=== PATIENT | male | born 2000 | race Caucasian/White ===

== ENCOUNTER 2021-01-28 04:41 | Emergency (ER) | payer BC ==
--- NOTE | 2021-01-28 05:07 | EDM.PDOC ---
ED HPI GENERAL MEDICAL PROBLEM - General Stated Complaint: wrist pain/injury-both Time Seen by Provider: 01/28/21 04:55 Source of Information: Reports: Patient, Family History Limitations: Reports: No Limitations - History of Present Illness INITIAL COMMENTS - FREE TEXT/NARRATIVE: Patient presented to the ED because of bilateral wrist pain. He said he has been punching a bag at the gym and since then he has been hurting on both wrist. He also c/o epigastric pain that is sharp and burning. He said he doesn't want to take any medication. His mom also mentioned that he might be into drugs and might have anxiety or depression that is undiagnosed. When asked if he is suicidal,homicidal he answered no. He doesn't think he has anxiety or depression either. Bilateral Wrist Pain Score (Numeric/FACES): 10 - Related Data Allergies Allergy/AdvReac Type Severity Reaction Status Date / Time No Known Allergies Allergy Verified 01/28/21 04:54 Home Meds: Home Meds NK [No Known Home Meds] 01/28/21 [History] Review of Systems - Review of Systems Review Of Systems: See Below Constitutional: Reports: No Symptoms Eyes: Reports: No Symptoms Ears: Reports: No Symptoms Nose: Reports: No Symptoms Mouth/Throat: Reports: No Symptoms Respiratory: Reports: No Symptoms Cardiovascular: Reports: No Symptoms GI/Abdominal: Reports: No Symptoms Genitourinary: Reports: No Symptoms Musculoskeletal: Reports: No Symptoms Skin: Reports: No Symptoms Neurological: Reports: No Symptoms Psychiatric: Reports: No Symptoms ED EXAM, GENERAL - Physical Exam Exam: See Below Exam Limited By: No Limitations General Appearance: Alert, No Apparent Distress Eye Exam: Bilateral Eye: PERRL Ears: Normal External Exam, Normal Canal Nose: Normal Inspection, Normal Mucosa, No Blood Throat/Mouth: Normal Inspection, Normal Lips, Normal Teeth, Normal Gums Head: Atraumatic, Normocephalic Neck: Normal Inspection, Supple, Non-Tender, Full Range of Motion Respiratory/Chest: No Respiratory Distress, Lungs Clear, Normal Breath Sounds, No Accessory Muscle Use, Chest Non-Tender Cardiovascular: Normal Peripheral Pulses, Regular Rate, Rhythm, No Edema, No Gallop, No JVD, No Murmur, No Rub GI/Abdominal: Normal Bowel Sounds, Soft, Non-Tender, No Organomegaly, No Distention, No Abnormal Bruit, No Mass Back Exam: Normal Inspection, Full Range of Motion Extremities: Normal Inspection, Normal Range of Motion, Non-Tender, No Pedal Edema, Normal Capillary Refill Neurological: Alert, Oriented, CN II-XII Intact Psychiatric: Other (irritable) Skin Exam: Warm, Intact Course - Vital Signs Text/Narrative:: Xray [id number] Doesn't want a GI cocktail for his epigastric pain Last Recorded V/S: Last Vital Signs Temp 36.4 C 01/28/21 04:50 Pulse 83 01/28/21 04:50 Resp 18 01/28/21 04:50 BP 142/75 H 01/28/21 04:50 Pulse Ox 98 01/28/21 04:50 Departure - Departure Time of Disposition: 05:10 Disposition: Home, Self-Care 01 Condition: Good Clinical Impression: Wrist sprain - Discharge Information Instructions: Food Choices for Gastroesophageal Reflux Disease, Child, [id number], Wrist Sprain, Adult Referrals: PCP,None [Primary Care Provider] - Forms: ED Department Discharge Additional Instructions: Please read discharge instructions on wrist sprain Apply ice Take ibuprofen 800 mg with tylenol 1000 mg every 8 hours as needed for pain TUMS extra strength, ches 2-3 tablets and swallow with lukewarm water as needed whenever you have that epigastric pain Follow up with your doctor so you can be referred to see a psychiatrist if you have an ongoing behavioral issues like anxiety, depression or both Sepsis Event Note (ED) - Evaluation Sepsis Screening Result: No Definite Risk
--- NOTE | 2021-01-28 12:53 | CR ---
INDICATION: Bilateral wrist pain - punching injuries one week ago. BILATERAL WRIST 16821: Three views of the right and left wrists were obtained 01/28/21. No comparisons were available. An acute fracture, dislocation, or other significant bone or joint abnormality was not identified. If symptoms persist - if occult fracture site is suspected clinically - re- examination in 10-14 days may be helpful . [facility]
== END 2021-01-28 05:57 | disposition home or self-care (01) ==
LOC: FB.ED 04:41
DX: S63.501A Unspecified sprain of right wrist, initial encounter (principal); S63.502A Unspecified sprain of left wrist, initial encounter; W22.8XXA Striking against or struck by other objects, initial encounter
CPT/HCPCS: 73110-50; 99283-25